=== PATIENT | male | born 1955 | race American Indian/Alaskan Native ===

== ENCOUNTER 2021-10-25 15:10 | Emergency (ER) | payer MEDICARE ==
[2021-10-25 15:16] VITALS: BP 190/120
--- NOTE | 2021-10-25 18:22 | Emergency Department Report ---
ED Extremity Problem HPI - General Chief complaint: Extremity Injury, Upper Stated complaint: LEFT ARM GOUT PAIN Time Seen by Provider: 10/25/21 17:56 Source: EMS Mode of arrival: Stretcher Limitations: No Limitations - History of Present Illness Initial comments: Patient is a 66-year-old male presents emergency room complaints of a gout flare in his left wrist that began a few days ago. Patient reports that he frequently gets gout flares in different joints. He states it feels similar to his previous flares. Patient states that he does drink beer and wine. He denies any fall or injury. He denies any numbness or weakness. Allergy to shellfish. He takes allopurinol and colchicine for his gout. - Related Data Previous Rx's Medication Instructions Recorded Last Taken Type Indomethacin [Indocin] 25 mg PO Q8H 7 Days #21 capsule 10/25/21 Unknown Rx predniSONE [Deltasone] 40 mg PO QDAY 5 Days #10 tab 10/25/21 Unknown Rx traMADoL [Ultram 50 MG tab] 50 mg PO Q6HR PRN #12 tablet 10/25/21 Unknown Rx Allergies Allergy/AdvReac Type Severity Reaction Status Date / Time shellfish derived AdvReac Hives Verified 10/25/21 15:16 ED Review of Systems ROS: Stated complaint: LEFT ARM GOUT PAIN Other details as noted in HPI Comment: All other systems reviewed and negative ED Past Medical Hx - Past Medical History Additional medical history: gout - Medications Home Medications: Home Medications Medication Instructions Recorded Confirmed Last Taken Type Indomethacin [Indocin] 25 mg PO Q8H 7 Days #21 capsule 10/25/21 Unknown Rx predniSONE [Deltasone] 40 mg PO QDAY 5 Days #10 tab 10/25/21 Unknown Rx traMADoL [Ultram 50 MG tab] 50 mg PO Q6HR PRN #12 tablet 10/25/21 Unknown Rx ED Physical Exam - General Limitations: No Limitations General appearance: alert, in no apparent distress - Head Head exam: Present: atraumatic, normocephalic - Eye Eye exam: Present: normal appearance - ENT ENT exam: Present: mucous membranes moist - Extremities Exam Extremities exam: Present: other (ttp, edema, increased warmth, and mild erythema to the left wrist, mildly decreased ROM secondary to pain, neurovasculalry intact) - Neurological Exam Neurological exam: Present: alert, oriented X3 - Psychiatric Psychiatric exam: Present: normal affect, normal mood - Skin Skin exam: Present: warm, dry, intact ED Course Vital Signs 10/25/21 15:14 Temperature 96.7 F L Pulse Rate 95 H Respiratory 16 Rate Blood Pressure 190/120 [Right] O2 Sat by Pulse 95 Oximetry ED Medical Decision Making - Medical Decision Making Patient is a 66-year-old male presents emergency room complaints of a gout flare in his left wrist that began a few days ago. Patient reports that he frequently gets gout flares in different joints. He states it feels similar to his previous flares. Patient states that he does drink beer and wine. He denies any fall or injury. He denies any numbness or weakness. Allergy to shellfish. He takes allopurinol and colchicine for his gout. On exam ttp, edema, increased warmth, and mild erythema to the left wrist, mildly decreased ROM secondary to pain, neurovasculalry intact. No fever or tachycardia. His examination appears consistent with gout flare and he reports that it feels similar to previous flares and he is a alcohol drinker. I advised patient to please stop alcohol use and to follow a low purine diet. Do not suspect septic joint at this time. She reports he has an upcoming appointment with his primary care doctor, discussed the importance of follow-up. Discussed return precautions. Advised patient Please take medication as prescribed. Please follow-up with your primary care doctor. Return to emergency room for any new or worsening symptoms. Critical care attestation.: If time is entered above; I have spent that time in minutes in the direct care of this critically ill patient, excluding procedure time. ED Disposition Clinical Impression: Gout flare Qualifiers: Gout site: wrist Gout etiology: unspecified cause Laterality: left Qualified Code(s): M10.9 - Gout, unspecified Disposition: HOME / SELF CARE / HOMELESS Is pt being admited?: No Does the pt Need Aspirin: No Condition: Stable Instructions: Low-Purine Eating Plan Additional Instructions: Please take medication as prescribed. Please follow-up with your primary care doctor. Return to emergency room for any new or worsening symptoms. Prescriptions: predniSONE [Deltasone] 40 mg PO QDAY 5 Days #10 tab Indomethacin [Indocin] 25 mg PO Q8H 7 Days #21 capsule traMADoL [Ultram 50 MG tab] 50 mg PO Q6HR PRN #12 tablet PRN Reason: Pain , Severe (7-10) Referrals: your, primary care doctor [Other] - 3-5 Days Time of Disposition: 18:19 Print Language: SCOTTISH
== END 2021-10-25 20:57 | disposition home or self-care (01) ==
LOC: ED 15:10
DX: M10.9 Gout, unspecified (principal); Z91.013 Allergy to seafood; Z79.899 Other long term (current) drug therapy
CPT/HCPCS: 99283

== ENCOUNTER 2022-03-01 21:03 | Emergency (ER) | payer MEDICARE ==
[2022-03-01 21:21] VITALS: BP 173/110
[2022-03-02] MEDS ORDERED: HYDROcodone/ACETAMINOPHEN 7.5-325MG TAB PO ONE (01:54)
[2022-03-02] MEDS ORDERED: predniSONE 20 MG TAB PO ONE (01:54)
[2022-03-02] MEDS ORDERED: IBUPROFEN 600 MG TAB PO ONE (01:54)
[2022-03-02] MEDS ORDERED: ONDANSETRON 4 MG ODT TAB PO ONE (01:55)
--- NOTE | 2022-03-02 02:21 | XRay Report ---
LEFT KNEE 3 VIEW(S) INDICATION / CLINICAL INFORMATION: LEFT KNEE PAIN, SWELLING COMPARISON: None available. FINDINGS: BONES / JOINT(S): No acute fracture or subluxation. Small marginal osteophytes are noted mostly invol ving the medial joint compartment. Spacing of the medial lateral compartment is grossly uniform. Smal l suprapatella bursa joint effusion present. SOFT TISSUES: No significant abnormality. ADDITIONAL FINDINGS: Diffuse arterial calcifications. IMPRESSION: 1. Small suprapatellar joint effusion without evidence of lipohemarthrosis or findings of acute fract ure. MRI may be useful for further evaluation for meniscal tear or ligamentous injury. Signer Name: Richard Cintron II, MD Signed: 03/02/2022 2:17 AM Workstation Name: [id number]
--- NOTE | 2022-03-02 02:46 | Emergency Department Report ---
ED Extremity Problem HPI - General Chief complaint: Extremity Injury, Lower Stated complaint: LEFT KNEE AND LEG PAIN Source: patient Mode of arrival: Ambulatory Limitations: No Limitations - History of Present Illness Initial comments: Patient is a 66-year-old -[place] male with a history of hypertension, chronic gout and osteoarthritis who presents to the ED with acute exacerbation of his chronic left knee pain with swelling for the last 1 week. Patient states that he has been taking nmmk-ntl-kwatohy medications with no relief. Patient denies fever, chills, traumatic injury, fall, heavy lifting, low back pain, chest pain or shortness of breath, nausea and vomiting, numbness and tingling or weakness of lower extremities bilaterally or change in vision and neck pain. MD Complaint: extremity pain (Left knee joint pain and swelling), extremity swelling (Left knee swelling and pain), joint swelling (Left knee joint pain and swelling), joint paint (Left knee joint pain) -: Gradual, year(s) (1) Location: left, lower extremity, knee (Left knee pain and swelling) History of Same: Yes (Chronic osteoarthritis and chronic gouty arthropathy) Severity scale (0 -10): 10 Quality: aching, sharp, constant Consistency: constant Improves with: nothing Worsens with: weight bearing, walking, exertion, palpation Associated Symptoms: denies other symptoms, arthralgias. denies: chest pain, shortness of breath, fever, myalgias, rash, other - Related Data Previous Rx's Medication Instructions Recorded Last Taken Type Indomethacin [Indocin] 25 mg PO Q8H 7 Days #21 capsule 10/25/21 Unknown Rx predniSONE [Deltasone] 40 mg PO QDAY 5 Days #10 tab 10/25/21 Unknown Rx traMADoL [Ultram 50 MG tab] 50 mg PO Q6HR PRN #12 tablet 10/25/21 Unknown Rx Acetaminophen [Tylenol] 500 mg PO Q6HR PRN #40 tablet 03/02/22 Unknown Rx Indomethacin 50 mg PO Q8H PRN #30 cap 03/02/22 Unknown Rx predniSONE [Deltasone] 60 mg PO QDAY #15 tab 03/02/22 Unknown Rx traMADoL [Ultram] 50 mg PO Q6HR PRN #12 tablet 03/02/22 Unknown Rx Allergies Allergy/AdvReac Type Severity Reaction Status Date / Time shellfish derived AdvReac Hives Verified 10/25/21 15:16 ED Review of Systems ROS: Stated complaint: LEFT KNEE AND LEG PAIN Other details as noted in HPI Constitutional: denies: chills, fever Eyes: denies: eye pain, eye discharge, vision change ENT: denies: ear pain, throat pain Respiratory: denies: cough, shortness of breath, wheezing Cardiovascular: denies: chest pain, palpitations Endocrine: no symptoms reported Gastrointestinal: denies: abdominal pain, nausea, diarrhea Genitourinary: denies: urgency, dysuria Musculoskeletal: joint swelling (Chronic left knee swelling and pain), arthralgia (Chronic left knee pain and swelling). denies: back pain Skin: denies: rash, lesions Neurological: denies: headache, weakness, paresthesias Psychiatric: denies: anxiety, depression Hematological/Lymphatic: denies: easy bleeding, easy bruising ED Past Medical Hx - Past Medical History Previous Medical History?: Yes Hx Hypertension: Yes Hx Arthritis: Yes Additional medical history: gout - Medications Home Medications: Home Medications Medication Instructions Recorded Confirmed Last Taken Type Indomethacin [Indocin] 25 mg PO Q8H 7 Days #21 capsule 10/25/21 Unknown Rx predniSONE [Deltasone] 40 mg PO QDAY 5 Days #10 tab 10/25/21 Unknown Rx traMADoL [Ultram 50 MG tab] 50 mg PO Q6HR PRN #12 tablet 10/25/21 Unknown Rx Acetaminophen [Tylenol] 500 mg PO Q6HR PRN #40 tablet 03/02/22 Unknown Rx Indomethacin 50 mg PO Q8H PRN #30 cap 03/02/22 Unknown Rx predniSONE [Deltasone] 60 mg PO QDAY #15 tab 03/02/22 Unknown Rx traMADoL [Ultram] 50 mg PO Q6HR PRN #12 tablet 03/02/22 Unknown Rx ED Physical Exam - General Limitations: No Limitations General appearance: alert, in no apparent distress - Head Head exam: Present: atraumatic, normocephalic, normal inspection - Eye Eye exam: Present: normal appearance, PERRL, EOMI Pupils: Present: normal accommodation - ENT ENT exam: Present: normal exam, normal orophraynx, mucous membranes moist, TM's normal bilaterally, normal external ear exam - Neck Neck exam: Present: normal inspection, full ROM. Absent: tenderness - Respiratory Respiratory exam: Present: normal lung sounds bilaterally. Absent: respiratory distress, wheezes, rales, rhonchi, stridor, chest wall tenderness, accessory muscle use, decreased breath sounds, prolonged expiratory - Cardiovascular Cardiovascular Exam: Present: regular rate, normal rhythm, normal heart sounds. Absent: systolic murmur, diastolic murmur, rubs, gallop - GI/Abdominal GI/Abdominal exam: Present: soft, normal bowel sounds. Absent: tenderness, guarding, rebound, hyperactive bowel sounds, hypoactive bowel sounds, organomegaly - Extremities Exam Extremities exam: Present: normal inspection, full ROM, tenderness (Palpable left knee tenderness with mild swelling and crepitus), normal capillary refill, joint swelling (Left knee swelling and tenderness) - Back Exam Back exam: Present: normal inspection, full ROM. Absent: tenderness, CVA tenderness (R), CVA tenderness (L), muscle spasm, paraspinal tenderness, vertebral tenderness - Neurological Exam Neurological exam: Present: alert, oriented X3, CN II-XII intact, normal gait, reflexes normal - Psychiatric Psychiatric exam: Present: normal affect, normal mood - Skin Skin exam: Present: warm, dry, intact, normal color. Absent: rash ED Course Vital Signs 03/01/22 21:19 Temperature 98.3 F Pulse Rate 114 H Respiratory 16 Rate Blood Pressure 173/110 O2 Sat by Pulse 93 Oximetry ED Medical Decision Making - Radiology Data Radiology results: report reviewed, image reviewed [address] [address] XRay Report Signed Patient: MIKEY MORENO MR#: [id number] : 1955 Acct:[id number] Age/Sex: 66 / M ADM Date: 03/01/22 Loc: ED Attending Dr: Ordering Physician: PAULA LACEY Date of Service: 03/02/22 Procedure(s): XR knee 3V LT Accession Number(s): [id number] cc: PAULA LACEY Fluoro Time In Minutes: LEFT KNEE 3 VIEW(S) INDICATION / CLINICAL INFORMATION: LEFT KNEE PAIN, SWELLING COMPARISON: None available. FINDINGS: BONES / JOINT(S): No acute fracture or subluxation. Small marginal osteophytes are noted mostly involving the medial joint compartment. Spacing of the medial lateral compartment is grossly uniform. Small suprapatella bursa joint effusion present. SOFT TISSUES: No significant abnormality. ADDITIONAL FINDINGS: Diffuse arterial calcifications. IMPRESSION: 1. Small suprapatellar joint effusion without evidence of lipohemarthrosis or findings of acute fracture. MRI may be useful for further evaluation for meniscal tear or ligame ntous injury. Signer Name: Jean Espino II, MD Signed: 03/02/2022 2:17 AM Workstation Name: [id number] Transcribed By: GHAZAL Dictated By: JEAN ESPINO II, MD Electronically Authenticated By: JEAN ESPINO II, MD Signed Date/Time: 03/02/22216 DD/ 4 TD/TT: Print Cancel - Medical Decision Making This is a 66-year-old -[place] male with a history of hypertension, chronic gout and osteoarthritis who presents to the ED with acute exacerbation of his chronic left knee pain with swelling for the last 1 week. Patient states that he has been taking [id number] medications with no relief. In the ED, patient is alert and oriented x3 and is not in any distress but tachycardic in triage and afebrile. Patient crying during the physical exam. Patient was treated for pain in the ED and left knee x-ray showed a small suprapatellar joint effusion without evidence of lipohemarthrosis or findings of acute fracture. MRI may be useful for further evaluation for meniscal tear or ligamentous injury. On reevaluation, patient's pain is well controlled medication. Patient will discharge home on pain medications and advised to follow-up with his primary care physician in 7 to 10 days for reevaluation. Patient was also advised to consider following up with the orthopedic surgeon Dr. Painting for further evaluation of his chronic degenerative joint disease of the left knee. Patient was advised return to the ED immediately if symptoms get worse. - Differential Diagnosis Osteoarthritis; gouty arthropathy; knee effusion; tendinitis; bursitis Critical care attestation.: If time is entered above; I have spent that time in minutes in the direct care of this critically ill patient, excluding procedure time. ED Disposition Clinical Impression: Chronic osteoarthritis, Chronic gouty arthropathy, Chronic pain of left knee Disposition: HOME / SELF CARE / HOMELESS Is pt being admited?: No Does the pt Need Aspirin: No Condition: Stable Instructions: Low-Purine Eating Plan, Chronic Knee Pain, Adult, Dlxs-da-Xcme, Arthritis, Fmnz-ke-Drmg, Pain Medicine Instructions, Lhdn-si-Sdsi Additional Instructions: The left knee x-ray showed no acute fractures or subluxations but significant degenerative joint disease. Therefore take medication with food, drink plenty of fluids and follow-up with your primary care physician in 7 to 10 days for reevaluation. Consider Contacting and following up with the orthopedic surgeon Dr. Painting for further evaluation of your chronic left knee osteoarthritis. Otherwise return to the ED immediately if your symptoms get worse. Prescriptions: Acetaminophen [Tylenol] 500 mg PO Q6HR PRN #40 tablet PRN Reason: Pain , Severe (7-10) predniSONE [Deltasone] 60 mg PO QDAY #15 tab Indomethacin 50 mg PO Q8H PRN #30 cap PRN Reason: Pain , Severe (7-10) traMADoL [Ultram] 50 mg PO Q6HR PRN #12 tablet PRN Reason: Pain Referrals: [facility] [Provider Group] - 7-10 days HILL PAINTING MD [Staff Physician] - 3-5 Days Time of Disposition: 02:49 Print Language: MOROCCAN
== END 2022-03-02 03:33 | disposition home or self-care (01) ==
LOC: ED 21:03
DX: M19.90 Unspecified osteoarthritis, unspecified site (principal); M1A.9XX0 Chronic gout, unspecified, without tophus (tophi); M25.562 Pain in left knee; I10 Essential (primary) hypertension; Z91.013 Allergy to seafood
CPT/HCPCS: 99283; J3490; Q0162

== ENCOUNTER 2022-05-09 13:37 | Emergency (ER) | payer MEDICARE ==
[2022-05-09] MEDS ORDERED: dexAMETHasone 20 MG/5 ML VIAL IV ONE ×2 (13:42→13:46)
[2022-05-09] MEDS ORDERED: IPRATROPIUM/ALBUTEROL SULFATE 3 ML AMPUL.NEB IH ONE (13:42)
[2022-05-09 13:46] VITALS: BP 123/81
--- NOTE | 2022-05-09 14:00 | Emergency Department Report ---
ED General Adult HPI - General Chief complaint: Dyspnea/Respdistress Stated complaint: BREATHING PROBLEMS Source: patient Mode of arrival: Ambulatory Limitations: No Limitations - History of Present Illness Initial comments: pt is as 67 y/o male with hx of COPD,HTN, AFib, and arthralgia, who presents for sob and wheezing that has worsened over the last month. pt denies fever or chills, there is no cp. no dizziness, no light headedness, no n/v. pt does endorse worsening wheezing with activity and environmental exposure, pt states symptoms not improving with albuterol HFA. - Related Data Previous Rx's Medication Instructions Recorded Last Taken Type Indomethacin [Indocin] 25 mg PO Q8H 7 Days #21 capsule 10/25/21 Unknown Rx traMADoL [Ultram 50 MG tab] 50 mg PO Q6HR PRN #12 tablet 10/25/21 Unknown Rx Acetaminophen [Tylenol] 500 mg PO Q6HR PRN #40 tablet 03/02/22 Unknown Rx Indomethacin 50 mg PO Q8H PRN #30 cap 03/02/22 Unknown Rx predniSONE [Deltasone] 60 mg PO QDAY #15 tab 03/02/22 Unknown Rx traMADoL [Ultram] 50 mg PO Q6HR PRN #12 tablet 03/02/22 Unknown Rx Albuterol Mdi (or & Nicu Only) 2 puff IH QID PRN #8.5 gram 05/09/22 Unknown Rx [ProAir HFA Inhaler] Azithromycin 500 mg PO DAILY 5 Days #5 tab 05/09/22 Unknown Rx predniSONE [Deltasone] 40 mg PO QDAY 5 Days #10 tab 05/09/22 Unknown Rx Allergies Allergy/AdvReac Type Severity Reaction Status Date / Time shellfish derived AdvReac Hives Verified 10/25/21 15:16 ED Review of Systems ROS: Stated complaint: BREATHING PROBLEMS Other details as noted in HPI Constitutional: denies: chills, fever Eyes: denies: eye pain, eye discharge, vision change ENT: denies: ear pain, throat pain Respiratory: cough, shortness of breath, wheezing Cardiovascular: denies: chest pain, palpitations Endocrine: no symptoms reported Gastrointestinal: denies: abdominal pain, nausea, diarrhea Genitourinary: denies: urgency, dysuria Musculoskeletal: denies: back pain, joint swelling, arthralgia Skin: denies: rash, lesions Neurological: denies: headache, weakness, paresthesias Psychiatric: denies: anxiety, depression Hematological/Lymphatic: denies: easy bleeding, easy bruising ED Past Medical Hx - Past Medical History Hx Hypertension: Yes Hx Arthritis: Yes Hx Asthma: Yes Hx COPD: Yes Additional medical history: gout, a.fib, kidney stones - Surgical History Additional Surgical History: hernia repair, - Social History Smoking Status: Former Smoker - Medications Home Medications: Home Medications Medication Instructions Recorded Confirmed Last Taken Type Indomethacin [Indocin] 25 mg PO Q8H 7 Days #21 capsule 10/25/21 Unknown Rx traMADoL [Ultram 50 MG tab] 50 mg PO Q6HR PRN #12 tablet 10/25/21 Unknown Rx Acetaminophen [Tylenol] 500 mg PO Q6HR PRN #40 tablet 03/02/22 Unknown Rx Indomethacin 50 mg PO Q8H PRN #30 cap 03/02/22 Unknown Rx predniSONE [Deltasone] 60 mg PO QDAY #15 tab 03/02/22 Unknown Rx traMADoL [Ultram] 50 mg PO Q6HR PRN #12 tablet 03/02/22 Unknown Rx Albuterol Mdi (or & Nicu Only) 2 puff IH QID PRN #8.5 gram 05/09/22 Unknown Rx [ProAir HFA Inhaler] Azithromycin 500 mg PO DAILY 5 Days #5 tab 05/09/22 Unknown Rx predniSONE [Deltasone] 40 mg PO QDAY 5 Days #10 tab 05/09/22 Unknown Rx ED Physical Exam - General Limitations: No Limitations General appearance: alert, in no apparent distress - Head Head exam: Present: normocephalic, normal inspection - Eye Eye exam: Present: normal appearance Pupils: Present: normal accommodation - ENT ENT exam: Present: normal orophraynx, mucous membranes moist - Neck Neck exam: Present: normal inspection - Respiratory Respiratory exam: Present: wheezes. Absent: rales, rhonchi, stridor, chest wall tenderness, prolonged expiratory - Cardiovascular Cardiovascular Exam: Present: regular rate, normal rhythm, normal heart sounds. Absent: systolic murmur, diastolic murmur, rubs, gallop - GI/Abdominal GI/Abdominal exam: Present: soft, normal bowel sounds. Absent: distended, tenderness - Rectal Rectal exam: Present: deferred - Extremities Exam Extremities exam: Present: normal inspection, full ROM, normal capillary refill. Absent: tenderness - Back Exam Back exam: Present: normal inspection. Absent: CVA tenderness (R), CVA tenderness (L) - Neurological Exam Neurological exam: Present: alert, oriented X3, CN II-XII intact, normal gait - Psychiatric Psychiatric exam: Present: normal affect, normal mood - Skin Skin exam: Present: warm, dry, intact, normal color. Absent: rash ED Course Vital Signs 05/09/22 13:42 Temperature 98.9 F Pulse Rate 83 Respiratory 24 Rate Blood Pressure 123/81 O2 Sat by Pulse 94 Oximetry ED Medical Decision Making - Lab Data Result diagrams: 05/09/22 13:54 05/09/22 13:54 - EKG Data EKG shows normal: sinus rhythm, axis, intervals, QRS complexes, ST-T waves Rate: normal - EKG Data When compared to previous EKG there are: previous EKG unavailable Interpretation: normal EKG - Radiology Data Radiology results: report reviewed, image reviewed (Normal sinus rhythm no ST elevated MN interpreted by ED attending.) CHEST 2 VIEWS INDICATION / CLINICAL INFORMATION: sob. COMPARISON: One view of the chest from 04/10/2013. FINDINGS: SUPPORT DEVICES: None. HEART / MEDIASTINUM: No significant abnormality. LUNGS / PLEURA: No significant pulmonary abnormality. No significant pleural effusion. No pneumothorax. ADDITIONAL FINDINGS: No significant additional findings. IMPRESSION: 1. No acute abnormality of the chest. Signer Name: Sb Robin MD Signed: 05/09/2022 2:30 PM Workstation Name: [id number] Transcribed By: MN Dictated By: Sb Robin MD Electronically Authenticated By: Sb Robin MD Signed Date/Time: 05/09/221429 DD/ 28 TD/TT: - Medical Decision Making Symptoms improved with medication given in ED. Patient states breathing is at baseline at this time. EKG is normal sinus rhythm no ST elevated MN, chest x- ray is normal infiltrates no opacities. There are mild expiratory wheezes bilaterally at this time. However patient has ambulated from room to restroom and back to room without increased shortness of breath or increase in wheezing. Plan refill medications as prescribed. Provide rescue inhaler, short burst steroids. Follow-up with primary care doctor in 2 to 3 days. Given instructions to return to emergency department should symptoms worsen. Patient verbalizes agreement and understanding with discharge plan. Patient DC'd home in stable condition at this time. Critical care attestation.: If time is entered above; I have spent that time in minutes in the direct care of this critically ill patient, excluding procedure time. ED Disposition Clinical Impression: COPD (chronic obstructive pulmonary disease) Qualifiers: COPD type: COPD with acute exacerbation Qualified Code(s): J44.1 - Chronic obstructive pulmonary disease with (acute) exacerbation Disposition: HOME / SELF CARE / HOMELESS Is pt being admited?: No Does the pt Need Aspirin: No Condition: Stable Instructions: Chronic Obstructive Pulmonary Disease Exacerbation, [id number], Chronic Obstructive Pulmonary Disease (ED) Additional Instructions: Take medications as prescribed. Follow-up with your doctor in 2 to 3 days. Return to emergency department should symptoms worsen. Prescriptions: Azithromycin 500 mg PO DAILY 5 Days #5 tab predniSONE [Deltasone] 40 mg PO QDAY 5 Days #10 tab Albuterol Mdi (or & Nicu Only) [ProAir HFA Inhaler] 2 puff IH QID PRN #8.5 gram PRN Reason: Shortness Of Breath Referrals: NAHUM MUNGUIA MD [Staff Physician] - 3-5 Days Time of Disposition: 14:47
[2022-05-09 14:12] LABS: Hematocrit 43.1 % (35.5-45.6); Mean Corpuscular HGB Conc 33 % (32-34); Mean Corpuscular Volume 87 fl (84-94); Platelet Count 480 K/mm3 (140-440); Red Blood Count 4.94 M/mm3 (3.65-5.03); Red Cell Distribution Width 16.3 % (13.2-15.2)
[2022-05-09 14:33] LABS: Alanine Aminotransferase 11 units/L (7-56); BUN/Creatinine Ratio 19; Blood Urea Nitrogen 19 mg/dL (9-20); Hemolysis Index 5
--- NOTE | 2022-05-09 14:35 | XRay Report ---
CHEST 2 VIEWS INDICATION / CLINICAL INFORMATION: sob. COMPARISON: One view of the chest from 04/10/2013. FINDINGS: SUPPORT DEVICES: None. HEART / MEDIASTINUM: No significant abnormality. LUNGS / PLEURA: No significant pulmonary abnormality. No significant pleural effusion. No pneumothora x. ADDITIONAL FINDINGS: No significant additional findings. IMPRESSION: 1. No acute abnormality of the chest. Signer Name: Sb Robin MD Signed: 05/09/2022 2:30 PM Workstation Name: [id number]
[2022-05-09] MEDS ORDERED: dexAMETHasone 20 MG/5 ML VIAL IM ONE (14:42)
[2022-05-09 15:13] LABS: Total Cells Counted 100
[2022-05-09 15:14] LABS: Platelet Estimate Consistent w Auto; RBC Morphology Normal
--- NOTE | 2022-05-09 20:01 | Electrocardiograph Report ---
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
== END 2022-05-09 15:15 | disposition home or self-care (01) ==
LOC: ED 13:37
DX: J45.909 Unspecified asthma, uncomplicated (principal); I10 Essential (primary) hypertension; M19.90 Unspecified osteoarthritis, unspecified site; M10.9 Gout, unspecified; I48.91 Unspecified atrial fibrillation; Z87.442 Personal history of urinary calculi; Z98.890 Other specified postprocedural states; Z87.891 Personal history of nicotine dependence; Z91.013 Allergy to seafood
CPT/HCPCS: 36415; 71046; 80053; 84484; 85007; 85025; 93005; 96372; 99283; J1100

== ENCOUNTER 2022-07-20 23:07 | Emergency (ER) | payer MEDICARE ==
[2022-07-20] MEDS ORDERED: SODIUM CHLORIDE 0.9% 1000 ML 1,000 ML IV ONE (23:43)
--- NOTE | 2022-07-20 23:51 | Emergency Department Report ---
ED Palpitations HPI - General Chief Complaint: Arrhythmia/Palpitations Stated Complaint: PALPITATIONS Time Seen by Provider: 07/20/22 23:42 Source: patient, EMS Mode of arrival: Stretcher Limitations: No Limitations - History of Present Illness Initial Comments: 67 yo M with h/o Asthma and SVT who present with palpitation that started yesterday. Pt says he was seen yesterday at [place] where labs was done and was given iv medication. Pt denies any fever or chills. EMS reported that his heart rate was 151 bpm but now noticed to be normal. No other modifying or associated factors reported. MD Complaint: rapid heart beat - Related Data Previous Rx's Medication Instructions Recorded Last Taken Type Indomethacin [Indocin] 25 mg PO Q8H 7 Days #21 capsule 10/25/21 Unknown Rx traMADoL [Ultram 50 MG tab] 50 mg PO Q6HR PRN #12 tablet 10/25/21 Unknown Rx Acetaminophen [Tylenol] 500 mg PO Q6HR PRN #40 tablet 03/02/22 Unknown Rx Indomethacin 50 mg PO Q8H PRN #30 cap 03/02/22 Unknown Rx predniSONE [Deltasone] 60 mg PO QDAY #15 tab 03/02/22 Unknown Rx traMADoL [Ultram] 50 mg PO Q6HR PRN #12 tablet 03/02/22 Unknown Rx Albuterol Mdi (or & Nicu Only) 2 puff IH QID PRN #8.5 gram 05/09/22 Unknown Rx [ProAir HFA Inhaler] Azithromycin 500 mg PO DAILY 5 Days #5 tab 05/09/22 Unknown Rx predniSONE [Deltasone] 40 mg PO QDAY 5 Days #10 tab 05/09/22 Unknown Rx Allergies Allergy/AdvReac Type Severity Reaction Status Date / Time shellfish derived AdvReac Hives Verified 10/25/21 15:16 ED Review of Systems ROS: Stated complaint: PALPITATIONS Other details as noted in HPI Comment: All other systems reviewed and negative Cardiovascular: palpitations. denies: chest pain ED Past Medical Hx - Past Medical History Hx Hypertension: Yes Hx Arthritis: Yes Hx Asthma: Yes Hx COPD: Yes Additional medical history: gout, a.fib, kidney stones - Surgical History Additional Surgical History: hernia repair, - Social History Smoking Status: Former Smoker - Medications Home Medications: Home Medications Medication Instructions Recorded Confirmed Last Taken Type Indomethacin [Indocin] 25 mg PO Q8H 7 Days #21 capsule 10/25/21 Unknown Rx traMADoL [Ultram 50 MG tab] 50 mg PO Q6HR PRN #12 tablet 10/25/21 Unknown Rx Acetaminophen [Tylenol] 500 mg PO Q6HR PRN #40 tablet 03/02/22 Unknown Rx Indomethacin 50 mg PO Q8H PRN #30 cap 03/02/22 Unknown Rx predniSONE [Deltasone] 60 mg PO QDAY #15 tab 03/02/22 Unknown Rx traMADoL [Ultram] 50 mg PO Q6HR PRN #12 tablet 03/02/22 Unknown Rx Albuterol Mdi (or & Nicu Only) 2 puff IH QID PRN #8.5 gram 05/09/22 Unknown Rx [ProAir HFA Inhaler] Azithromycin 500 mg PO DAILY 5 Days #5 tab 05/09/22 Unknown Rx predniSONE [Deltasone] 40 mg PO QDAY 5 Days #10 tab 05/09/22 Unknown Rx ED Physical Exam - General Limitations: No Limitations General appearance: alert, in no apparent distress - Head Head exam: Present: normal inspection - Eye Eye exam: Present: normal appearance Pupils: Present: normal accommodation - ENT ENT exam: Present: normal exam, normal orophraynx, mucous membranes moist - Neck Neck exam: Present: normal inspection, full ROM. Absent: tenderness - Respiratory Respiratory exam: Present: normal lung sounds bilaterally. Absent: respiratory distress, accessory muscle use - Cardiovascular Cardiovascular Exam: Present: regular rate, normal rhythm, normal heart sounds - GI/Abdominal GI/Abdominal exam: Present: soft, normal bowel sounds. Absent: distended, tenderness - Extremities Exam Extremities exam: Present: normal inspection, normal capillary refill. Absent: tenderness, pedal edema - Back Exam Back exam: Absent: tenderness - Neurological Exam Neurological exam: Present: alert, oriented X3 - Psychiatric Psychiatric exam: Present: normal affect, normal mood - Skin Skin exam: Present: warm, normal color ED Course Vital Signs 07/20/22 07/21/22 07/21/22 23:12 00:15 01:10 Temperature 98.7 F Pulse Rate 76 Respiratory 16 Rate Blood Pressure 134/88 Blood Pressure 138/98 [Right] O2 Sat by Pulse 98 98 Oximetry ED Medical Decision Making - Lab Data Result diagrams: 07/20/22 23:49 07/20/22 23:49 - EKG Data -: EKG Interpreted by Me EKG shows normal: sinus rhythm Rate: normal - EKG Data 07/21/22 03:28 Noted with sinus rhythm at a rate of 75 bpm, with atrial premature complexes in this otherwise normal ECG. - Medical Decision Making Here with palpitation--but differential could be and not limited to seizure, symptomatic anemia, myocardial infarction, pulmonary embolism, anxiety, CVA especially posterior stroke or thyroid abnormality--in order to rule those out I will go ahead and order routine cardiopulmonary work-up that include troponin, EKG, chest x-ray, BNP, CKMB, and CBC, CMP, Urinalysis and thyroid panel for any correctable infectious process or electrolyte abnormality as a cause. In the meantime will give ivf ns 1L bolus for hydration. Noted with unremarkable labs including thyroid profile--patient reassured and DC home to drink plenty of fluids and call to follow-up with his cardiology and primary doctor for reevaluation Critical care attestation.: If time is entered above; I have spent that time in minutes in the direct care of this critically ill patient, excluding procedure time. ED Disposition Clinical Impression: Palpitations, SVT (supraventricular tachycardia) Disposition: 01 HOME / SELF CARE / HOMELESS Is pt being admited?: No Does the pt Need Aspirin: No Condition: Stable Instructions: Supraventricular Tachycardia, Adult, [id number] Additional Instructions: It is important that you call and schedule follow-up with your cardiology in the next 4 to 6 days for progress and reevaluation and treatment Increase your daily fluid to help your hydration Please do not hesitate to call or return to emergency if your symptoms worsen Time of Disposition: 03:29
[2022-07-21 00:05] LABS: Basophils # (Auto) 0.1 K/mm3 (0.0-0.1); Basophils % (Auto) 1.4 % (0.0-1.8); Eosinophils % (Auto) 0.6 % (0.0-4.3); Hematocrit 41.1 % (35.5-45.6); Hemoglobin 13.8 gm/dl (11.8-15.2); Lymphocytes # (Auto) 1.9 K/mm3 (1.2-5.4); Mean Corpuscular HGB Conc 34 % (32-34); Mean Corpuscular Volume 89 fl (84-94); Monocytes # (Auto) 0.6 K/mm3 (0.0-0.8); Monocytes % (Auto) 9.2 % (0.0-7.3); Platelet Count 424 K/mm3 (140-440); Red Cell Distribution Width 16.3 % (13.2-15.2)
[2022-07-21 00:21] LABS: Alanine Aminotransferase 12 units/L (7-56); Albumin 4.2 g/dL (3.9-5); BUN/Creatinine Ratio 26; Blood Urea Nitrogen 23 mg/dL (9-20); Calcium 9.9 mg/dL (8.4-10.2); Hemolysis Index 10
[2022-07-21 00:22] LABS: INR 0.92 (0.87-1.13); Partial Thromboplastin Time 25.8 Sec. (24.2-36.6)
[2022-07-21 00:23] VITALS: BP 134/88
[2022-07-21 00:30] LABS: Free T4 (Free Thyroxine) 1.05 ng/dL (0.76-1.46)
--- NOTE | 2022-07-21 01:21 | XRay Report ---
CHEST 1 VIEW INDICATION / CLINICAL INFORMATION: Dysrhythmia. COMPARISON: 05/09/2022 FINDINGS: SUPPORT DEVICES: None. HEART / MEDIASTINUM: Mild cardiomegaly. LUNGS / PLEURA: The lungs are slightly hyperinflated but otherwise grossly clear. No pneumothorax. ADDITIONAL FINDINGS: No significant additional findings. IMPRESSION: 1. No acute pulmonary or pleural disease. 2. Mild cardiomegaly. Signer Name: Elena Lainez MD Signed: 07/21/2022 1:17 AM Workstation Name: [id number]
[2022-07-21 02:04] LABS: Color,Urine Colorless (Yellow)
--- NOTE | 2022-07-21 09:35 | Electrocardiograph Report ---
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
== END 2022-07-21 04:29 | disposition home or self-care (01) ==
LOC: ED 23:07
DX: R00.2 Palpitations (principal); I47.1 Supraventricular tachycardia; I10 Essential (primary) hypertension; J45.909 Unspecified asthma, uncomplicated; Z91.013 Allergy to seafood; Z87.891 Personal history of nicotine dependence
CPT/HCPCS: 36415; 71045; 80053; 81001; 83735; 84439; 84443; 84484; 85025; 85610; 85730; 93005; 96360; 99284; J7030